=== PATIENT | male | born 2000 | race Caucasian/White ===

== ENCOUNTER 2023-11-21 21:15 | Emergency (ER) | payer SELFPAY ==
[~2023-11-21] VITALS: Ht 175.3 cm; Wt 62.0 kg
[2023-11-21 21:34] VITALS: BP 126/81; PULSE 86; RESP 16; TEMP 98.2; O2SAT 96
== END 2023-11-22 01:16 | disposition left against medical advice (07) ==
LOC: ER 21:15
DX: R10.9 Unspecified abdominal pain (principal); Z53.21 Procedure and treatment not carried out due to patient leaving prior to being seen by health care provider
CPT/HCPCS: 99281